=== PATIENT | female | born 1945 | race Caucasian/White ===

== ENCOUNTER → 2016-09-03 | Outpatient (CLI) | payer MEDICARE ==
[2016-09-03 11:29] LABS: EKG EKG PERFORMED
[2016-09-03 11:57] LABS: Basophils # (A) 0.1 k/uL (0-0.2); Basophils % (A) 1 %; CH 32.2; CHCM 33.6; Eosinophils # (A) 0.3 k/uL (0-0.7); Eosinophils % (A) 4 %; HCT 39.5 % (34.0-46.0); HDW 2.43; Luc # (Auto) 0.23; Luc % (Auto) 3; Lymphocytes # (A) 2.1 k/uL (1.0-4.8); Lymphocytes % (A) 30 %; MCH 31.5 pg (25.0-35.0); MCHC 32.8 g/dL (31.0-37.0); MCV 96.1 fL (80.0-100.0); Monocytes # (A) 0.5 k/uL (0-1.0); Monocytes % (A) 7 %; Neutrophils # (A) 3.9 k/uL (1.3-7.7); Neutrophils % (A) 55 %; RBC 4.11 m/uL (3.80-5.40); RDW 13.6 % (11.5-15.5); WBC 7.1 k/uL (3.8-10.6); WBC (Perox) 7.86
[2016-09-03 12:25] LABS: Anion Gap 10 mmol/L; Blood Urea Nitrogen 19 mg/dL (7-17); Calcium 9.4 mg/dL (8.4-10.2); Carbon Dioxide 26 mmol/L (22-30); Chloride 106 mmol/L (98-107); Glucose 93 mg/dL (74-99); Non-African American GFR(MDRD) 49 (>60 ml/min/1.73 sqM); Potassium 4.5 mmol/L (3.5-5.1); Sodium 142 mmol/L (137-145)
== END | disposition home or self-care (01) ==
LOC: LABPAT 11:19
PROVIDERS: ATTEND Physician Assistant
DX: Z01.810 Encounter for preprocedural cardiovascular examination (principal); Z01.812 Encounter for preprocedural laboratory examination; I48.91 Unspecified atrial fibrillation; E03.9 Hypothyroidism, unspecified; N20.1 Calculus of ureter; Z51.81 Encounter for therapeutic drug level monitoring; Z79.01 Long term (current) use of anticoagulants
CPT/HCPCS: 36415; 80048; 85025; 93005

== ENCOUNTER 2016-09-10 14:06 | Day surgery (SDC) | payer MEDICARE ==
[2016-09-06 16:21] VITALS: BMI 34.7
--- NOTE | 2016-09-10 14:04 | XR ---
EXAMINATION TYPE: XR KUB DATE OF EXAM: 09/10/2016 2:00 PM COMPARISON: 09/03/2013 HISTORY: Pain TECHNIQUE: One view abdominal series FINDINGS: The osseous structures are intact. The bowel gas pattern is nonspecific. Lung bases are clear. Calc ifications in the pelvis are likely vascular. Degenerative change lower lumbar spine. Arthropathy of the hips. IMPRESSION: 1. Nonspecific abdomen.
[~2016-09-10 14:06] MED LIST: DEXAMETHASONE SOD PHOSPHATE 10 MG/ML 1 ML VIAL IV ONE; HYDROmorphone 1 MG/ML 1 ML SYRINGE IVP PRN; LACTATED RINGERS 1,000 ML IV SCH; ONDANSETRON 4 MG/2 ML VIAL IVP ONE; Pre Op ABX Message 1 EACH MISC MISCELLANE ONE
[2016-09-10 14:31] VITALS: RESP 16; TEMP 97.9
[2016-09-10] MEDS ORDERED: LIDOCAINE 1% 20 ML VIAL (10MG/ML) FOR IV START INTRADERMA ONE (14:33)
[2016-09-10 15:04] LABS: INR 1.2 (<1.1); Prothrombin Time 11.7 sec (9.0-12.0)
[2016-09-10] MEDS ORDERED: IOHEXOL 300 MG/ML 50 ML BOTTLE INJ ONE (18:20)
[2016-09-10 18:43] VITALS: BP 165/99; PULSE 124
--- NOTE | 2016-09-11 12:44 | OP ---
DATE OF SERVICE: 09/10/2016 SURGEON: MYKE RESENDIZ MD PREOPERATIVE DIAGNOSIS: Right ureteral calculus. POSTOPERATIVE DIAGNOSIS: No definite calculus present. OPERATION: Examination under fluoroscopy with intravenous contrast. ANESTHESIA: None The patient is a 71-year-old female with a history of urolithiasis who had a CT scan of the abdomen and pelvis at [facility] on 08/03 that identified a 6 mm proximal right ureteral calculus. The patient was not symptomatic at that time. Treatment options were reviewed with Dr. Rojas and the patient has elected to undergo ESWL treatment. She has not been straining her urine since that time and has had no pain. The patient was taken to the fluoroscopy suite. The right ureteral calculus was not identifiable on a KUB or with fluoroscopy. The patient is given 100 mL of Omnipaque 300. There appeared to be opacification of the right ureter within 5 or 10 minutes, which confirmed no ureteral obstruction. It was my feeling that the patient most likely passed the calculus sometime in the last 5 weeks. Because of this, ESWL was canceled. [facility]
== END 2016-09-10 18:44 | disposition home or self-care (01) ==
LOC: ORWHC2ENDO 14:06
PROVIDERS: ATTEND Urology
DX: N20.1 Calculus of ureter (principal); R52 Pain, unspecified; Z53.8 Procedure and treatment not carried out for other reasons; I48.91 Unspecified atrial fibrillation; E03.9 Hypothyroidism, unspecified; E55.9 Vitamin D deficiency, unspecified; E78.00 Pure hypercholesterolemia, unspecified; E66.9 Obesity, unspecified; Z68.34 Body mass index [BMI] 34.0-34.9, adult; M19.90 Unspecified osteoarthritis, unspecified site; I12.9 Hypertensive chronic kidney disease with stage 1 through stage 4 chronic kidney disease, or unspecified chronic kidney disease; N18.3 Chronic kidney disease, stage 3 (moderate); F41.9 Anxiety disorder, unspecified; J44.9 Chronic obstructive pulmonary disease, unspecified; G47.33 Obstructive sleep apnea (adult) (pediatric); K21.9 Gastro-esophageal reflux disease without esophagitis; Z79.01 Long term (current) use of anticoagulants; Z79.82 Long term (current) use of aspirin; Z79.899 Other long term (current) drug therapy; Z88.4 Allergy status to anesthetic agent; Z88.8 Allergy status to other drugs, medicaments and biological substances; Z91.048 Other nonmedicinal substance allergy status; Z87.891 Personal history of nicotine dependence
CPT/HCPCS: 85610; 74000; 50590; Q9967

== ENCOUNTER → 2016-11-13 | Outpatient (CLI) | payer MEDICARE ==
--- NOTE | 2016-11-13 13:39 | XR ---
EXAMINATION TYPE: XR KUB , 2 VIEWS DATE OF EXAM ORDERED: 11/13/2016 HISTORY: N20.0 Stone. COMPARISON: Previous study dated 09/10/2016. FINDINGS: There has been a previous cholecystectomy. There are stable phleboliths within the pelvis. Definite renal calculus is not identified. The abdomi nal gas pattern is normal. There are degenerative changes in the hips and lower spine. IMPRESSION: NO ACUTE INTRA-ABDOMINAL ABNORMALITY.
== END | disposition home or self-care (01) ==
LOC: RADXRMAIN 13:20
PROVIDERS: ATTEND Urology
DX: N20.0 Calculus of kidney (principal)
CPT/HCPCS: 74000

== ENCOUNTER → 2016-12-06 | Outpatient (CLI) | payer MEDICARE ==
[2016-12-06 08:59] LABS: Basophils % (A) 1 %; CH 31.5; CHCM 33.3; Eosinophils # (A) 0.3 k/uL (0-0.7); Eosinophils % (A) 5 %; HCT 39.5 % (34.0-46.0); HDW 2.49; HGB 13.3 gm/dL (11.4-16.0); Luc # (Auto) 0.21; Luc % (Auto) 3; Lymphocytes # (A) 2.1 k/uL (1.0-4.8); Lymphocytes % (A) 29 %; MCHC 33.7 g/dL (31.0-37.0); MCV 95.1 fL (80.0-100.0); Mean Platelet Volume 6.8; Monocytes # (A) 0.5 k/uL (0-1.0); Monocytes % (A) 6 %; Neutrophils # (A) 4.1 k/uL (1.3-7.7); Neutrophils % (A) 57 %; RBC 4.15 m/uL (3.80-5.40); RDW 13.4 % (11.5-15.5); WBC 7.2 k/uL (3.8-10.6)
[2016-12-06 09:08] LABS: Calcium 9.2 mg/dL (8.4-10.2)
== END | disposition home or self-care (01) ==
LOC: LABPAT 08:37
PROVIDERS: ATTEND Physician Assistant
DX: Z01.812 Encounter for preprocedural laboratory examination (principal); N20.0 Calculus of kidney; N13.30 Unspecified hydronephrosis; E03.9 Hypothyroidism, unspecified; R35.0 Frequency of micturition
CPT/HCPCS: 80048; 85025; 87086

== ENCOUNTER 2016-12-13 06:05 | Day surgery (SDC) | payer MEDICARE ==
[2016-12-06 15:27] VITALS: BMI 35.6
[~2016-12-13 06:05] MED LIST changes: -Pre Op ABX Message 1 EACH MISC MISCELLANE ONE; +ceFAZolin 1,000 MG in DEXTROSE/WATER 1 50ML.BAG IV ONE
[2016-12-13 06:36] VITALS: RESP 16
[2016-12-13] MEDS ORDERED: LIDOCAINE 1% 20 ML VIAL (10MG/ML) FOR IV START INTRADERMA ONE (07:12)
[2016-12-13 07:28] LABS: INR 1.2 (<1.2); Prothrombin Time 12.2 sec (9.0-12.0)
[2016-12-13] MEDS ORDERED: SUCCINYLCHOLINE CHLORIDE 100 MG/5 ML SYR IV ONE (07:38)
[2016-12-13] MEDS ORDERED: fentaNYL (PF) 50 MCG/ML 2 ML AMP ONE (07:38)
[2016-12-13] MEDS ORDERED: ePHEDrine SULFATE/0.9% NACL/PF 50 MG/5 ML SYRINGE IV ONE (07:38)
[2016-12-13] MEDS ORDERED: GLYCOPYRROLATE 0.2 MG/ML 2 ML VIAL ONE (07:38)
[2016-12-13] MEDS ORDERED: MIDAZOLAM 2 MG/2 ML VIAL ONE (07:38)
[2016-12-13] MEDS ORDERED: PROPOFOL 10 MG/ML 20 ML VIAL IV ONE (07:38)
--- NOTE | 2016-12-13 07:49 | XR ---
Abdomen HISTORY: Right renal calculus, kidney stones Frontal view of the abdomen correlated to prior of 11/13/2016 Overlying bowel gas may obscure detail. Surgical clips present in the right upper quadrant. No eviden t pneumoperitoneum or bowel obstruction. Multiple calcifications within the pelvis are indeterminate and may represent phleboliths. Bone mineralization is stable. Degenerative disc changes, facet arthro merle and the visualized spine. Lung bases are not included on the exam. IMPRESSION: Bowel gas may obscure detail of kidney stones. Additional findings above.
[2016-12-13] MEDS ORDERED: IOHEXOL 300 MG/ML 50 ML BOTTLE INJ ONE (07:54)
[2016-12-13] MEDS ORDERED: LACTATED RINGERS 1,000 ML IV ONE (08:46)
--- NOTE | 2016-12-13 09:06 | P.OP ---
Date of Procedure: 12/13/16 Preoperative Diagnosis: Right Ureteral Calculus Postoperative Diagnosis: Same Procedure(s) Performed: Cystoscopy, right retrograde pyelogram, right ureteroscopy with Holmium laser lithotripsy and stone basketing, right ureteral stent insertion Implants: Anesthesia: FANNY Surgeon: Dmitry Rojas Estimated Blood Loss (ml): 0 IV fluids (ml): 1,000 Pathology: none sent Condition: stable Disposition: PACU Indications for Procedure: She is a 71 year old female with a history of one stone in 2013. She had ESWL twice for a large, 11 mm calculus. She had a recent CT done to evaluate an umbilical hernia, and it showed a 6 mm right proximal ureteral calculus, with mild rotation of the right kidney, and mild hydronephrosis. She has not had any pain, and was unaware that she had another stone. A 24 hour urine study in 2013 showed diminished urine output, as well as borderline hydroxyurea. She has been drinking more water since then. She was set up for ESWL, but the stone could not be seen. A repeat CT showed an 8 mm right proximal ureteral calculus causing hydronephrosis, and she now comes for ureteroscopic removal (cystoscopy , right ureteroscopy, laser lithotripsy and stone basketing, with a right stent placement). Operative Findings: Right UPJ calculus, fragmented and removed in its entirety. Description of Procedure: The patient was taken to the operating room and placed in the dorsolithotomy position, with legs supported in Jose F stirrups. The external genitalia was prepped and draped sterilely. The 30 lens was used to introduce the 19-Yemeni Stortz cystoscopic sheath through the urethra and into the bladder under direct vision. The bladder was examined in its entirety. Both ureteral orifices were normal anatomic location and configuration, and clear urine effluxed from both. No tumors or foreign bodies were seen. Using a 12-Yemeni cone-tip catheter, a right retrograde pyelogram was performed in the standard fashion. The ureter appeared normal. The right renal pelvis was noted to be dilated. A calculus at the UPJ is suspected. The ACMI semirigid ureteroscope was advanced into the bladder, and the right ureteral orifice was cannulated. However, the ureteroscope could be advanced only 1 cm, at which point ureteral narrowing was noted. A 0.038 inch Glidewire was passed through the ureteroscope. Resistance was met at the UPJ, and the Glidewire was then advanced into the renal pelvis. The ureteroscope was removed, and an 11/13-Yemeni ureteral access catheter was passed over the wire, up to the proximal ureter. The Olympus flexible ureteroscope was passed through the ureteral access catheter sheath and advanced under direct vision. A calculus was identified within the right renal pelvis. The 200 micron Holmium laser probe was passed through the ureteroscope , and lithotripsy was performed. After fragmenting the calculus, a 1.9-Yemeni nitinol basket was used to remove each of the calculus fragments. There was no evidence of ureteral or renal pelvic trauma. The ureteroscope was removed, and the Glidewire was passed through the ureteral access catheter sheath, which was removed. The Glidewire was backloaded into the cystoscope, which was passed into the bladder. A 24 cm, 4.8-Yemeni double-J ureteral stent was placed over the wire. Proper stent positioning was verified fluoroscopically and endoscopically. The bladder was emptied and the cystoscope removed. The patient tolerated the procedure well and was taken to the recovery room in stable condition.
[2016-12-13 09:13] VITALS: TEMP 97.8
--- NOTE | 2016-12-13 09:52 | FL ---
Fluoroscopy HISTORY: Kidney stones 17 seconds fluoroscopy time supplied to the referring clinician. 2 intraoperative C-arm images docum ent the procedure. See dictated report from urology.
[2016-12-13 10:37] VITALS: BP 148/74; PULSE 58
== END 2016-12-13 11:25 | disposition home or self-care (01) ==
LOC: OR 06:05
PROVIDERS: ATTEND Urology
DX: N13.2 Hydronephrosis with renal and ureteral calculous obstruction (principal); E78.5 Hyperlipidemia, unspecified; J45.909 Unspecified asthma, uncomplicated; I48.91 Unspecified atrial fibrillation; N18.3 Chronic kidney disease, stage 3 (moderate); F41.9 Anxiety disorder, unspecified; E03.9 Hypothyroidism, unspecified; E78.00 Pure hypercholesterolemia, unspecified; G47.30 Sleep apnea, unspecified; E66.9 Obesity, unspecified; I12.9 Hypertensive chronic kidney disease with stage 1 through stage 4 chronic kidney disease, or unspecified chronic kidney disease; Q63.2 Ectopic kidney; M19.90 Unspecified osteoarthritis, unspecified site; K21.9 Gastro-esophageal reflux disease without esophagitis; Z79.01 Long term (current) use of anticoagulants; Z79.1 Long term (current) use of non-steroidal anti-inflammatories (NSAID); Z79.51 Long term (current) use of inhaled steroids; Z79.899 Other long term (current) drug therapy; Z88.4 Allergy status to anesthetic agent; Z87.442 Personal history of urinary calculi; Z99.89 Dependence on other enabling machines and devices; Z82.49 Family history of ischemic heart disease and other diseases of the circulatory system; Z87.891 Personal history of nicotine dependence; Z84.1 Family history of disorders of kidney and ureter; Z68.35 Body mass index [BMI] 35.0-35.9, adult
CPT/HCPCS: 50590; 52332; 85610; 74000; 74420; C2625; C1758 ×3; C1769; C1894; J2250; J1100; J2405; J3010; J0690; J0330; J2704; Q9967

== ENCOUNTER → 2017-01-28 | Outpatient (CLI) | payer MEDICARE ==
--- NOTE | 2017-01-28 11:38 | US ---
EXAMINATION TYPE: US kidneys/renal and bladder DATE OF EXAM: 01/28/2017 COMPARISON: Abdominal x-ray December 13, 2016 CLINICAL HISTORY: R93.4 HX OF HYDRONEPHROSIS. Stent 2 months ago then stent removed for rt stones EXAM MEASUREMENTS: Right Kidney: 10.3 x 4.7 x 4.6 cm Left Kidney: 10.2 x 4.6 x 5.5 cm Post Void Residual Volume: 3.3 mL Right Kidney: No hydronephrosis or masses seen small specular reflector lower, mid 0.5 x 0.4 x 0.3 cm, Left Kidney: No hydronephrosis or masses seen lower pole small specular reflector 0.4 x 0.3 x 0.3 cm Bladder: wnl Bilateral Jets seen: Yes Normal Post Void Residual: Yes There is no evidence for hydronephrosis at this point in time. No nephrolithiasis is seen. No rex s are identified. The urinary bladder is anechoic. Bilateral ureteral jets are seen. After voiding trace residual urinary bladder is present. IMPRESSION: No hydronephrosis is evident bilaterally on current study. Small nonshadowing hyperechoic foci could reflect tiny nonobstructing calculi though no calculi are clearly seen on recent KUB x-ray.
== END | disposition home or self-care (01) ==
LOC: RADUSWWP 09:44
PROVIDERS: ATTEND Urology
DX: Z09 Encounter for follow-up examination after completed treatment for conditions other than malignant neoplasm (principal); Z87.42 Personal history of other diseases of the female genital tract
CPT/HCPCS: 76770

== ENCOUNTER 2023-10-08 16:17 | Inpatient (IN) | payer MEDICARE ==
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
[2023-10-08 17:43] LABS: MCH 30.6 pg (25.0-35.0); MCHC 33.1 g/dL (31.0-37.0); MCV 92.6 fL (80.0-100.0); Platelet Count 249 k/uL (150-450); RBC 1.85 m/uL (3.80-5.40); RDW 15.6 % (11.5-15.5)
[2023-10-08 17:46] LABS: HCT 17.1 % (34.0-46.0)
[2023-10-08 17:47] LABS: HGB 5.7 gm/dL (11.4-16.0)
[2023-10-08 17:53] LABS: Partial Thromboplastin Time 52.4 sec (22.0-30.0); Prothrombin Time 97.8 sec (10.0-12.5)
[2023-10-08 17:59] LABS: INR 9.8 (<1.2)
[2023-10-08 18:00] LABS: ALT 21 U/L (4-34); AST 27 U/L (14-36); African American GFR (CKD) 57 (>60 ml/min/1.73 sqM); Albumin 3.3 g/dL (3.5-5.0); Alkaline Phosphatase 51 U/L (38-126); Anion Gap 8 mmol/L; Blood Urea Nitrogen 50 mg/dL (7-17); Calcium 8.8 mg/dL (8.4-10.2); Carbon Dioxide 19 mmol/L (22-30); Chloride 107 mmol/L (98-107); Glucose 121 mg/dL (74-99); Magnesium 1.9 mg/dL (1.6-2.3); Non-African American GFR(CKD) 50 (>60 ml/min/1.73 sqM); Potassium 4.7 mmol/L (3.5-5.1); Sodium 134 mmol/L (137-145); Total Bilirubin 0.3 mg/dL (0.2-1.3); Total Protein 5.1 g/dL (6.3-8.2)
[2023-10-08 18:09] LABS: Band Neutrophils % 2 %; Lymphocytes # (M) 1.73 k/uL (1.0-4.8); Metamyelocytes # (M) 0.17 k/uL (0); Metamyelocytes % 1 %; Monocytes # (M) 0.52 k/uL (0-1.0); Myelocytes # (M) 0.17 k/uL (0); Myelocytes % 1 %; Neutrophils % (M) 85 %; Nucleated Red Blood Cells 2 /100 WBC (0-0); Polychromasia Present; Total Cells Counted 200; WBC 17.3 k/uL (3.8-10.6)
--- NOTE | 2023-10-08 18:23 | XR ---
EXAMINATION TYPE: XR chest 2V DATE OF EXAM: 10/08/2023 COMPARISON: Chest x-ray February 16, 2015 HISTORY: Weakness. TECHNIQUE: Frontal and lateral views of the chest are obtained. FINDINGS: Suspect background chronic emphysematous change. There is no focal air space opacity, pleu ral effusion, or pneumothorax seen. The cardiac silhouette size is within normal limits. Dual-lead pacemaker is now present. The osseous structures are demineralized. IMPRESSION: Chronic changes without acute pulmonary process.
[2023-10-08] MEDS: PHYTONADIONE 10 MG in SODIUM CHLORIDE 0.9% 50 ML IVPB STA (18:48)
[2023-10-08] MEDS: SODIUM CHLORIDE 0.9% 1,000 ML IV ONE (19:50)
[2023-10-08 19:54] LABS: MCH 30.2 pg (25.0-35.0); MCHC 32.1 g/dL (31.0-37.0); Mean Platelet Volume 7.9; Platelet Count 278 k/uL (150-450); RBC 1.83 m/uL (3.80-5.40); RDW 15.8 % (11.5-15.5)
[2023-10-08 20:11] LABS: HCT 17.2 % (34.0-46.0); HGB 5.5 gm/dL (11.4-16.0)
[2023-10-08 21:01] LABS: Band Neutrophils % 2 %; Basophils # (M) 0.19 k/uL (0-0.2); Eosinophils # (M) 0.38 k/uL (0-0.7); Lymphocytes # (M) 3.02 k/uL (1.0-4.8); Metamyelocytes # (M) 0.19 k/uL (0); Metamyelocytes % 1 %; Monocytes # (M) 0.57 k/uL (0-1.0); Myelocytes # (M) 0.19 k/uL (0); Myelocytes % 1 %; Neutrophils % (M) 77 %; Nucleated Red Blood Cells 1 /100 WBC (0-0); Total Cells Counted 200; WBC 18.9 k/uL (3.8-10.6)
[2023-10-08 21:02] LABS: Large Platelets Present; Polychromasia Present
[2023-10-08] MEDS ORDERED: LORATADINE 10 MG TAB PO PRN (23:25)
[2023-10-08] MEDS ORDERED: ARTIFICIAL TEARS-HYPROMELLOSE DROPS 15 ML BTL BOTH EYES PRN (23:25)
[2023-10-08] MEDS ORDERED: MONTELUKAST 10 MG TAB PO PRN (23:25)
[2023-10-08] MEDS ORDERED: SYMBICORT 160-4.5 MCG INHALER INHALATION PRN (23:25)
[2023-10-08] MEDS ORDERED: IPRATROPIUM 0.5 MG/2.5 ML NEBU INHALATION PRN (23:47)
--- NOTE | 2023-10-09 00:23 | P.HPIM ---
History of Present Illness H&P Date: 10/08/23 HISTORY OF PRESENT ILLNESS: 78-year-old with active medical history of atrial fibrillation, obstructive sleep apnea, chronic history of lower back pain, hypertension, hyperlipidemia, history of iron deficiency anemia, chronic edema, and chronic depression who has multi surgery in the past patient apparently take warfarin for A-fib as an anticoagulation she has not been on any of the novel agent. Her PT/INR noticed in the office to be above 8 was instructed to watch it carefully and repeat quickly and if she is having any complaint to come to the emergency department. Apparently patient came to the emergency department in the afternoon today for her abnormal lab with significant shortness of breath and sever weakness of the lower extremity not been well explained. She was seen and evaluated surprisingly found to have INR of 9.8, hemoglobin of 5.5 hematocrit of 17.2 with white blood cell 18.9 normal platelet count. Electrolyte balance shows creatinine of 1.09 with bun of 50 Hemoccult was positive lactic acid was 1.2 blood sugar was 121 troponin was less than 0.012. Chest x-ray showed chronic changes without acute pulmonary process no pneumothorax or pleural effusion. EKG showed electronic atrial pacemaker with pulse rate running around 81 beats per minutes. With above complaint patient had severe acute anemia most likely from GI bleed with severe coagulopathy mostly iatrogenic as an interaction with the warfarin with diet and medication causing her INR to be that high. Patient will be watched carefully and blood transfusion be done will consult general surgery since there is no GI on-call for backup in case need to do endoscopy. In the meanwhile hopefully correcting her blood loss might help significantly and clear some of her symptoms. REVIEW OF SYSTEMS: CONSTITUTIONAL: Well-developed very pale no acute respiratory distress. EYES: No icterus sclerae, no conjunctivitis. EARS, NOSE, MOUTH, THROAT, and FACE: No sore throat, lymphadenopathy, carotid bruits or deformity. RESPIRATORY: No SOB cough or wheezes. CARDIOVASCULAR: No CP, Palpitation, PND, Orthopnea, or angina. GASTROINTESTINAL: No Abd pain, Nausea or vomiting, no Diarrhea or constipation, No GI Bleed, no distention or masses. GENITOURINARY: Negative for Hematuria or UTI, no kidney stones. INTEGUMENT/BREAST: Negative for any muscular injury with mild osteoarthritis.. HEMATOLOGIC/LYMPHATIC: Negative for bleed or purpura. MUSCULOSKELTAL: Negative for Myalgia or arthralgia. NEURLOGICAL: No LOC, Sz or syncope, blurred vision dizziness or abnormality.. BEHAVIORAL/PSYCH: Negative. ENDOCRINE: Negative. PHYSICAL EXAMINATION: General Appearance: Alert, cooperative, no distress, appears stated age. Neck HEENT: Supple, no lymphadenopathy, no thyroid enlargement, no carotid bruits. Lungs: Clear to auscultation without crackles or wheezes no rhonchi, no deformity. Chest Wall: Chest wall normal expansion with deep inspiration no tenderness and no deformity was found on exam, no costochondral pain or discomfort. Heart: Regular rate and rhythm, S1, S2 normal, no murmur, rub or gallop. Back: Symmetric, no curvature, ROM normal, no CVA tenderness. Abdomen: Soft, non-tender, bowel sounds active all four quadrants, no masses, no organomegaly. Extremities: Extremities normal, atraumatic, no cyanosis or edema. Pulses: 2+ and symmetric. Skin: Skin color, texture, tugor normal, no rashes or lesions. Neurologic: Alert oriented x3 cranial nerves II through XII intact, no motor deficit, no abnormal balance or gait. ASSESSMENT AND PLAN: _Acute blood loss anemia: Not clear etiology could be consistent with a c oagulopathy but this is most likely source is gastrointestinal specially with elevated BUN along with positive Hemoccult, will correct coagulopathy, correct hemoglobin watch for any further bleed. _Severe coagulopathy: With INR of 9.8 not clear etiology this is probably interaction with medication or diet, vitamin K was giving no need for fresh frozen plasma unless patient is an active bleed in the meanwhile continue to watch PT/INR daily in the next 2 days and hopefully will settle down and improve not quite sure why patient is not on one of the novel agent which will be more helpful. _Leukocytosis: Not a clear etiology this is again could be reactive there is no sign of active infection currently. _Acute kidney injury with BUN of 50 creatinine 1.09 with GFR 50 this is most likely from the severity of the anemia and volume loss correct anemia and volume loss hopefully the kidney function will improve. _Positive Hemoccult: Again not a clear patient is having any active bleed at thi s time or is just the effect of the coagulopathy. _Type 2 diabetes: Has been on metformin only continue Accu-Chek with sliding scales coverage. _A-fib: Pulse rates under control continue metoprolol succinate 25 mg a day, still on diltiazem CD1 20 mg daily will hold off on anticoagulation for now. _Post pacemaker: Apparently has been doing well with no complication. _Hyperlipidemia: On pravastatin 20 mg a day. _Hypertension: Remain on irbesartan 300 mg a day along with metoprolol succinate 25 mg a day, diltiazem CD. _Hypothyroidism: Continue levothyroxine 137 mcg daily. _Mild COPD: Continue albuterol/ipratropium along with montelukast and breztri inhaler. _Chronic edema and diastolic heart failure: Has been on furosemide 40 mg daily will hold medication for now. _GI prophylaxis: Continue patient on pantoprazole. _DVT prophylaxis: Early mobilization and knee-high SONU hose. CODE STATUS: Full code. Admit patient to the inpatient service for more than 2 night stay. Past Medical History Past Medical History: Atrial Fibrillation Additional Past Medical History / Comment(s): 02/22/15 Pt admitted to floor s/p R shoulder sx. Other HX: SLEEP APNEA-USES C-PAP, BACK AND NECK PAIN, FELL AND INJURED R SHOULDER NOVEMBER 2014. Cryoablation, cardioversion History of Any Multi-Drug Resistant Organisms: None Reported Past Surgical History: Cholecystectomy, Hysterectomy, Orthopedic Surgery, Tonsillectomy Additional Past Surgical History / Comment(s): 02/22/15 Acromioplasty excision distal clavicle rotator cuff repair R shoulder. Other SX HX: TONSILLS(5), RT HAND CELL TUMOR(1972), LT FOOT GANGLION CYST (1986), (1 988),HYST(1987),TAMAR(1988),RT KNEE ARTHROSCOPY(2000), TOTAL RT KNEE (2001),LT Carpal tunnel release (2003), LEFT HAND VEIN RELEASE(2008). Past Anesthesia/Blood Transfusion Reactions: No Reported Reaction Past Psychological History: Unable to Obtain, Anxiety Additional Psychological History / Comment(s): She is independent. She drives. She uses no assistive device. She has a CPAP. Smoking Status: Never smoker Past Alcohol Use History: Rare Past Drug Use History: None Reported - Past Family History Mother Family Medical History: Cancer Additional Family Medical History / Comment(s): LUNG CA Brother(s) Family Medical History: Cancer Additional Family Medical History / Comment(s): LUNG & BRAIN CA Father Family Medical History: CVA/TIA Son(s) Family Medical History: No Reported History Medications and Allergies Home Medications Medication Instructions Recorded Confirmed Type Aspirin EC [Ecotrin] 81 mg PO DAILY 02/17/15 10/08/23 History Levothyroxine Sodium [Synthroid] 137 mcg PO DAILY 02/17/15 10/08/23 History Multivit with Calcium,Iron,Min 1 tab PO DAILY 02/17/15 10/08/23 History [Women's Daily Multivitamin] [place]-3 Fatty Acids/Fish Oil [Fish 1 cap PO BID 02/17/15 10/08/23 History Oil 1,000 mg Softgel] Warfarin [Coumadin] 5 mg PO DIRECTED 02/17/15 10/08/23 History Ferrous Sulfate [Feosol] 325 mg PO DAILY 09/06/16 10/08/23 History Furosemide [Lasix] 40 mg PO DAILY 09/06/16 10/08/23 History Loratadine [Claritin] 10 mg PO DAILY PRN 09/06/16 10/08/23 History Montelukast Sodium [Singulair] 10 mg PO DIRECTED PRN 09/06/16 10/08/23 History Potassium Chloride [Klor-Con 20] 20 meq PO DAILY 09/06/16 10/08/23 History Vitamin C/Biotin [Hair, Skin and 1 tab PO DAILY 09/06/16 10/08/23 History Nails] busPIRone HCL 5 mg PO BID 09/06/16 10/08/23 History Amoxicillin 2,000 mg PO ONETIME PRN 10/08/23 10/08/23 History Budesonide/Glycopyr/Formoterol 2 puff INHALATION DIRECTED PRN 10/08/23 10/08/23 History [Breztri Aerosphere Inhaler] Carboxymethylcellulose Sodium 1 drop BOTH EYES QID PRN 10/08/23 10/08/23 History [Refresh Tears] Cholecalciferol [Vitamin D3 (125 125 mcg PO DAILY 10/08/23 10/08/23 History Mcg = 5000 Iu)] Cyanocobalamin [Vitamin B-12] 500 mcg PO MOWEFR 10/08/23 10/08/23 History Diltiazem Cd [Cardizem CD] 120 mg PO DIRECTED@2100 10/07/24 06/11/24 History Fluticasone Nasal [place] [Flonase 1 spr EA NOSTRIL BID 10/08/23 10/08/23 History Nasal [place]] Irbesartan 150 mg PO DIRECTED@209910/08/23 10/08/23 History Magnesium Oxide [Magnesium] 500 mg PO DAILY 10/08/23 10/08/23 History Metoprolol Succinate (ER) [Toprol 25 mg PO HS 10/08/23 10/08/23 History Xl] Pantoprazole [Protonix] 40 mg PO DAILY 10/08/23 10/08/23 History Pravastatin(Unknown Dose) 1 tab PO DAILY 10/08/23 10/08/23 History metFORMIN HCL ER [Glucophage XR] 500 mg PO HS 10/08/23 10/08/23 History Allergies Allergy/AdvReac Type Severity Reaction Status Date / Time procaine HCl [From Novocain] AdvReac Unknown Rapid Verified 10/08/23 20:38 Heart Rate Physical Exam Vitals: Vital Signs Temp Pulse Pulse Resp BP BP Pulse Ox 10/08/23 21:22 98 F 70 14 132/54 100 10/08/23 21:04 97.7 F 70 17 126/54 100 10/08/23 20:44 98.6 F 65 17 112/60 100 10/08/23 20:34 98.7 F 69 18 93/81 100 10/08/23 20:00 67 20 119/47 100 10/08/23 18:37 92 18 120/44 95 10/08/23 16:24 98.4 F 83 18 116/50 100 Intake and Output 10/08/23 10/08/23 10/09/23 14:59 22:59 06:59 Intake Total 0 Balance 0 Intake: Blood Product 0 Unit 0 Other: Voiding Method Toilet Weight 85.275 kg Results CBC & Chem 7: 10/08/23 19:44 10/08/23 17:10 Labs: Abnormal Lab Results - Last 24 Hours (Table) 10/08/23 10/08/23 10/08/23 Range/Units 17:10 17:10 17:10 WBC 17.3 H (3.8-10.6) k/uL RBC 1.85 L (3.80-5.40) m/uL Hgb 5.7 L* (11.4-16.0) gm/dL Hct 17.1 L* (34.0-46.0) % RDW 15.6 H (11.5-15.5) % Neutrophils # (Manual) 15.00 H (1.3-7.7) k/uL Metamyelocytes # (Man) 0.17 H (0) k/uL Myelocytes # (Manual) 0.17 H (0) k/uL Nucleated RBCs 2 H (0-0) /100 WBC PT 97.8 H (10.0-12.5) sec INR 9.8 H* (<1.2) APTT 52.4 H (22.0-30.0) sec Sodium 134 L (137-145) mmol/L Carbon Dioxide 19 L (22-30) mmol/L BUN 50 H (7-17) mg/dL Creatinine 1.09 H (0.52-1.04) mg/dL Glucose 121 H (74-99) mg/dL Plasma Lactic Acid Jossue (0.7-2.0) mmol/L Total Protein 5.1 L (6.3-8.2) g/dL Albumin 3.3 L (3.5-5.0) g/dL Stool Occult Blood (Negative) Crossmatch 10/08/23 10/08/23 10/08/23 Range/Units 17:10 18:40 18:40 WBC (3.8-10.6) k/uL RBC (3.80-5.40) m/uL Hgb (11.4-16.0) gm/dL Hct (34.0-46.0) % RDW (11.5-15.5) % Neutrophils # (Manual) (1.3-7.7) k/uL Metamyelocytes # (Man) (0) k/uL Myelocytes # (Manual) (0) k/uL Nucleated RBCs (0-0) /100 WBC PT (10.0-12.5) sec INR (<1.2) APTT (22.0-30.0) sec Sodium (137-145) mmol/L Carbon Dioxide (22-30) mmol/L BUN (7-17) mg/dL Creatinine (0.52-1.04) mg/dL Glucose (74-99) mg/dL Plasma Lactic Acid Jossue 2.7 H* (0.7-2.0) mmol/L Total Protein (6.3-8.2) g/dL Albumin (3.5-5.0) g/dL Stool Occult Blood Positive H (Negative) Crossmatch See Detail 10/08/23 10/08/23 Range/Units 19:44 20:31 WBC 18.9 H (3.8-10.6) k/uL RBC 1.83 L (3.80-5.40) m/uL Hgb 5.5 L* (11.4-16.0) gm/dL Hct 17.2 L* (34.0-46.0) % RDW 15.8 H (11.5-15.5) % Neutrophils # (Manual) 14.90 H (1.3-7.7) k/uL Metamyelocytes # (Man) 0.19 H (0) k/uL Myelocytes # (Manual) 0.19 H (0) k/uL Nucleated RBCs 1 H (0-0) /100 WBC PT (10.0-12.5) sec INR (<1.2) APTT (22.0-30.0) sec Sodium (137-145) mmol/L Carbon Dioxide (22-30) mmol/L BUN (7-17) mg/dL Creatinine (0.52-1.04) mg/dL Glucose (74-99) mg/dL Plasma Lactic Acid Jossue 2.6 H* (0.7-2.0) mmol/L Total Protein (6.3-8.2) g/dL Albumin (3.5-5.0) g/dL Stool Occult Blood (Negative) Crossmatch Thrombosis Risk Factor Assmnt - Choose All That Apply Any of the Below Risk Factors Present?: Yes Each Factor Represents 1 point: Obesity (BMI >25) Other Risk Factors: Yes Each Risk Factor Represents 3 Points: Age 75 years or older Other congenital or acquired thrombophilia - If yes, enter type in comment: No Thrombosis Risk Factor Assessment Total Risk Factor Score: 4 Thrombosis Risk Factor Assessment Level: Moderate Risk
[2023-10-09 02:08] LABS: Basophils # (A) 0.1 k/uL (0-0.2); Basophils % (A) 1 %; Eosinophils # (A) 0.1 k/uL (0-0.7); Eosinophils % (A) 1 %; HCT 21.4 % (34.0-46.0); Lymphocytes # (A) 2.5 k/uL (1.0-4.8); Lymphocytes % (A) 15 %; MCH 30.4 pg (25.0-35.0); MCHC 32.8 g/dL (31.0-37.0); MCV 92.6 fL (80.0-100.0); Mean Platelet Volume 7.8; Monocytes % (A) 6 %; Neutrophils # (A) 12.8 k/uL (1.3-7.7); Neutrophils % (A) 77 %; Platelet Count 217 k/uL (150-450); RBC 2.31 m/uL (3.80-5.40); RDW 15.1 % (11.5-15.5); WBC 16.7 k/uL (3.8-10.6)
[2023-10-09] MEDS: LEVOTHYROXINE 137 MCG TAB PO SCH (06:09)
[2023-10-09 06:25] LABS: Glucose,Whole Blood 134 mg/dL (70-110)
[2023-10-09 06:47] LABS: Appearance,Urine Cloudy (Clear); Bacteria,Urine Moderate /hpf; Bilirubin,Urine Negative (Negative); Blood,Urine Negative (Negative); Color,Urine Colorless; Glucose,Urine (UA) Negative (Negative); Ketones,Urine Negative (Negative); Leukocyte Esterase,Urine Large (Negative); Mucus,Urine Rare /hpf; Nitrite,Urine Negative (Negative); Protein,Urine Negative (Negative); RBC,Urine 6 /hpf (0-5); Specific Gravity,Urine 1.023 (1.001-1.035); Squamous Epithelial Cell,Urine 3 /hpf (0-4); Urobilinogen,Urine <2.0 mg/dL (<2.0); WBC,Urine 182 /hpf (0-5)
--- NOTE | 2023-10-09 08:02 | P.PN ---
Subjective Progress Note Date: 10/09/23 HISTORY OF PRESENT ILLNESS: 78-year-old with active medical history of atrial fibrillation, obstructive sleep apnea, chronic history of lower back pain, hypertension, hyperlipidemia, h istory of iron deficiency anemia, chronic edema, and chronic depression who has multi surgery in the past patient apparently take warfarin for A-fib as an anticoagulation she has not been on any of the novel agent. Her PT/INR noticed in the office to be above 8 was instructed to watch it carefully and repeat quickly and if she is having any complaint to come to the emergency department. Apparently patient came to the emergency department in the afternoon today for her abnormal lab with significant shortness of breath and sever weakness of the lower extremity not been well explained. She was seen and evaluated surprisingly found to have INR of 9.8, hemoglobin of 5.5 hematocrit of 17.2 with white blood cell 18.9 normal platelet count. Electrolyte balance shows creatinine of 1.09 with bun of 50 Hemoccult was positive lactic acid was 1.2 blood sugar was 121 troponin was less than 0.012. Chest x-ray showed chronic changes without acute pulmonary process no pneumothorax or pleural effusion. EKG showed electronic atrial pacemaker with pulse rate running around 81 beats per minutes. With above complaint patient had severe acute anemia most likely from GI bleed with severe coagulopathy mostly iatrogenic as an interaction with the warfarin with diet and medication causing her INR to be that high. Patient will be watched carefully and blood transfusion be done will consult general surgery since there is no GI on-call for backup in case need to do endoscopy. In the meanwhile hopefully correcting her blood loss might help significantly and clear some of her symptoms. 10/09/2023: Patient is feeling much better, after her transfusion her hemoglobin is up to 7.0, no sign of active GI bleed at this point. Will start iron infusion still on GI prophylaxis at this point. Patient is scheduled to have GI endoscopy with Dr. Dustin allan in November from previous testing done over 2 years ago. She does not have any history of recurrent GI bleed or peptic ulcer disease. With her coagulopathy this probably the biggest factor be a problem. Long talk with patient today about if remain on warfarin we will try to do INR home monitor to tested weekly from now and otherwise we will see if we are able to approve patient for the [facility] agent to switch her to either Eliquis or Xarelto. Patient will remain in the hospital for 24 more hours and will try to send her home tomorrow but she will have iron infusion today and tomorrow. REVIEW OF SYSTEMS: CONSTITUTIONAL: Well-developed very pale no acute respiratory distress. EYES: No icterus sclerae, no conjunctivitis. EARS, NOSE, MOUTH, THROAT, and FACE: No sore throat, lymphadenopathy, carotid bruits or deformity. RESPIRATORY: No SOB cough or wheezes. CARDIOVASCULAR: No CP, Palpitation, PND, Orthopnea, or angina. GASTROINTESTINAL: No Abd pain, Nausea or vomiting, no Diarrhea or constipation, No GI Bleed, no distention or masses. GENITOURINARY: Negative for Hematuria or UTI, no kidney stones. INTEGUMENT/BREAST: Negative for any muscular injury with mild osteoarthritis.. HEMATOLOGIC/LYMPHATIC: Negative for bleed or purpura. MUSCULOSKELTAL: Negative for Myalgia or arthralgia. NEURLOGICAL: No LOC, Sz or syncope, blurred vision dizziness or abnormality.. BEHAVIORAL/PSYCH: Negative. ENDOCRINE: Negative. PHYSICAL EXAMINATION: General Appearance: Alert, cooperative, no distress, appears stated age. Neck HEENT: Supple, no lymphadenopathy, no thyroid enlargement, no carotid bruits. Lungs: Clear to auscultation without crackles or wheezes no rhonchi, no deformity. Chest Wall: Chest wall normal expansion with deep inspiration no tenderness and no deformity was found on exam, no costochondral pain or discomfort. Heart: Regular rate and rhythm, S1, S2 normal, no murmur, rub or gallop. Back: Symmetric, no curvature, ROM normal, no CVA tenderness. Abdomen: Soft, non-tender, bowel sounds active all four quadrants, no masses, no organomegaly. Extremities: Extremities normal, atraumatic, no cyanosis or edema. Pulses: 2+ and symmetric. Skin: Skin color, texture, tugor normal, no rashes or lesions. Neurologic: Alert oriented x3 cranial nerves II through XII intact, no motor deficit, no abnormal balance or gait. ASSESSMENT AND PLAN: _Acute blood loss anemia: Much better so far after transfusion continue to watch for INR and CBC which will be done again today and tomorrow morning. _Severe coagulopathy: Looks like the biggest factor had affected her INR was probably starting Macrodantin for UTI sometimes a week early which is the only thing she was started on and that made her INR goes up to 8.0 and further more 9.8. Will keep watching if she goes on any antibiotics in the future should have her INR done within few days. _Leukocytosis: Most likely related to UTI patient be started on Rocephin. UTI: will do Rocephin 1 G daily and switch to Oral when D/C. _Acute kidney injury with BUN of 50 creatinine 1.09 with GFR 50 this is most likely from the severity of the anemia and volume loss correct anemia and volume loss hopefully the kidney function will improve. _Positive Hemoccult: Again not a clear patient is having any active bleed at this time or is just the effect of the coagulopathy. _Type 2 diabetes: Has been on metformin only continue Accu-Chek with sliding scales coverage. _A-fib: She had total of 4 ablation at [facility] and was seen Dr. Amin has been on metoprolol Cardizem and warfarin looking at her heart monitor she is on paced rhythm of 60 bpm with no A-fib but was informed by her electrophysio logist to stay on anticoagulation lifetime. _Post pacemaker: Apparently has been doing well with no complication. _Hyperlipidemia: On pravastatin 20 mg a day. _Hypertension: Remain on irbesartan 300 mg a day along with metoprolol succinate 25 mg a day, diltiazem CD. _Hypothyroidism: Continue levothyroxine 137 mcg daily. _Mild COPD: Continue albuterol/ipratropium along with montelukast and breztri inhaler. _Chronic edema and diastolic heart failure: Has been on furosemide 40 mg daily will hold medication for now. _GI prophylaxis: Continue patient on pantoprazole. CODE STATUS: Full code. Discussion patient had severe coagulopathy most likely from the interaction between antibiotics and her warfarin which created significantly high INR not a clear whether she is having any active GI bleed or not there is no sign of it at this point patient is still going to see general surgery with no need to do any endoscopy at this point specially if active nicely with the current management w ill continue GI prophylaxis watch patient for 24 more hours iron infusion to be done probably send patient home tomorrow with testing weekly for now until she is more stable and the anemia is better and we will try to switch her anticoagulation from warfarin to novel agent if possible. Objective - Vital Signs Vital signs: Vital Signs Temp 98.2 F 06/12/24 04:00 Pulse 73 10/09/23 04:00 Resp 14 10/09/23 04:00 BP 130/68 10/09/23 04:00 Pulse Ox 100 10/09/23 04:00 FiO2 Intake & Output 10/08/23 10/08/23 10/09/23 06:59 18:59 06:59 Intake Total 310 Balance 310 Weight 85.275 kg 85.275 kg Intake: Blood Product 310 Rc As-1 Unit 310 [id number] Other: Voiding Method Toilet - Labs CBC & Chem 7: 10/09/23 01:28 10/08/23 17:10 Labs: Abnormal Lab Results - Last 24 Hours (Table) 10/08/23 10/08/23 10/08/23 Range/Units 17:10 17:10 17:10 WBC 17.3 H (3.8-10.6) k/uL RBC 1.85 L (3.80-5.40) m/uL Hgb 5.7 L* (11.4-16.0) gm/dL Hct 17.1 L* (34.0-46.0) % RDW 15.6 H (11.5-15.5) % Neutrophils # (1.3-7.7) k/uL Neutrophils # (Manual) 15.00 H (1.3-7.7) k/uL Metamyelocytes # (Man) 0.17 H (0) k/uL Myelocytes # (Manual) 0.17 H (0) k/uL Nucleated RBCs 2 H (0-0) /100 WBC PT 97.8 H (10.0-12.5) sec INR 9.8 H* (<1.2) APTT 52.4 H (22.0-30.0) sec Sodium 134 L (137-145) mmol/L Carbon Dioxide 19 L (22-30) mmol/L BUN 50 H (7-17) mg/dL Creatinine 1.09 H (0.52-1.04) mg/dL Glucose 121 H (74-99) mg/dL Plasma Lactic Acid Jossue (0.7-2.0) mmol/L Total Protein 5.1 L (6.3-8.2) g/dL Albumin 3.3 L (3.5-5.0) g/dL Stool Occult Blood (Negative) Crossmatch 10/08/23 10/08/23 10/08/23 Range/Units 17:10 18:40 18:40 WBC (3.8-10.6) k/uL RBC (3.80-5.40) m/uL Hgb (11.4-16.0) gm/dL Hct (34.0-46.0) % RDW (11.5-15.5) % Neutrophils # (1.3-7.7) k/uL Neutrophils # (Manual) (1.3-7.7) k/uL Metamyelocytes # (Man) (0) k/uL Myelocytes # (Manual) (0) k/uL Nucleated RBCs (0-0) /100 WBC PT (10.0-12.5) sec INR (<1.2) APTT (22.0-30.0) sec Sodium (137-145) mmol/L Carbon Dioxide (22-30) mmol/L BUN (7-17) mg/dL Creatinine (0.52-1.04) mg/dL Glucose (74-99) mg/dL Plasma Lactic Acid Jossue 2.7 H* (0.7-2.0) mmol/L Total Protein (6.3-8.2) g/dL Albumin (3.5-5.0) g/dL Stool Occult Blood Positive H (Negative) Crossmatch See Detail 10/08/23 10/08/23 10/09/23 Range/Units 19:44 20:31 01:28 WBC 18.9 H 16.7 H (3.8-10.6) k/uL RBC 1.83 L 2.31 L (3.80-5.40) m/uL Hgb 5.5 L* 7.0 L D (11.4-16.0) gm/dL Hct 17.2 L* 21.4 L (34.0-46.0) % RDW 15.8 H (11.5-15.5) % Neutrophils # 12.8 H (1.3-7.7) k/uL Neutrophils # (Manual) 14.90 H (1.3-7.7) k/uL Metamyelocytes # (Man) 0.19 H (0) k/uL Myelocytes # (Manual) 0.19 H (0) k/uL Nucleated RBCs 1 H (0-0) /100 WBC PT (10.0-12.5) sec INR (<1.2) APTT (22.0-30.0) sec Sodium (137-145) mmol/L Carbon Dioxide (22-30) mmol/L BUN (7-17) mg/dL Creatinine (0.52-1.04) mg/dL Glucose (74-99) mg/dL Plasma Lactic Acid Jossue 2.6 H* (0.7-2.0) mmol/L Total Protein (6.3-8.2) g/dL Albumin (3.5-5.0) g/dL Stool Occult Blood (Negative) Crossmatch
[2023-10-09 08:40] LABS: Anisocytosis Slight; HCT 20.5 % (34.0-46.0); HGB 7.1 gm/dL (11.4-16.0); MCH 31.5 pg (25.0-35.0); MCHC 34.7 g/dL (31.0-37.0); Platelet Count 231 k/uL (150-450); RBC 2.25 m/uL (3.80-5.40); RDW 16.2 % (11.5-15.5); WBC 17.9 k/uL (3.8-10.6)
[2023-10-09] MEDS: MULTIVITAMINS, THERA 1 EACH TAB PO SCH (08:46)
[2023-10-09] MEDS: FLUTICASONE 50MCG/SPRAY NASAL 16GM EA NOSTRIL SCH (08:46)
[2023-10-09] MEDS: MAGNESIUM OXIDE 400 MG TAB PO SCH (08:46)
[2023-10-09] MEDS: FERROUS SULFATE 325 MG TAB PO SCH (08:46)
[2023-10-09] MEDS: CYANOCOBALAMIN 500 MCG TAB PO SCH (08:46)
[2023-10-09] MEDS: CHOLECALCIFEROL 125 MCG (5000 IU) TABLET PO SCH (08:46)
[2023-10-09] MEDS: busPIRone HCl 5 MG TAB PO SCH (08:46)
[2023-10-09] MEDS: PANTOPRAZOLE 40 MG/10 ML VIAL IVP SCH ×2 (08:47→20:59)
[2023-10-09] MEDS ORDERED: PANTOPRAZOLE 40 MG TABLET PO SCH (09:00)
[2023-10-09] MEDS ORDERED: NON FORMULARY DRUG (Omega-3 Fatty Acids/Fish Oil [Fish Oil 1,000 Mg Softgel] 1 EACH Capsul PO SCH (09:00)
[2023-10-09 09:02] LABS: INR 1.4 (<1.2); Prothrombin Time 14.4 sec (10.0-12.5)
[2023-10-09 09:03] LABS: ALT 20 U/L (4-34); AST 32 U/L (14-36); African American GFR (CKD) 67 (>60 ml/min/1.73 sqM); Albumin 3.3 g/dL (3.5-5.0); Alkaline Phosphatase 50 U/L (38-126); Anion Gap 6 mmol/L; Blood Urea Nitrogen 45 mg/dL (7-17); Calcium 8.5 mg/dL (8.4-10.2); Carbon Dioxide 20 mmol/L (22-30); Chloride 111 mmol/L (98-107); Glucose 139 mg/dL (74-99); Non-African American GFR(CKD) 58 (>60 ml/min/1.73 sqM); Potassium 4.4 mmol/L (3.5-5.1); Sodium 137 mmol/L (137-145); Total Bilirubin 0.8 mg/dL (0.2-1.3); Total Protein 5.4 g/dL (6.3-8.2)
[2023-10-09] MEDS: SODIUM FERRIC GLUCONAT-SUCROSE 125 MG in SODIUM CHLORIDE 0.9% 100 ML IVPB SCH (09:52)
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
[2023-10-09 12:36] LABS: Glucose,Whole Blood 118 mg/dL (70-110)
[2023-10-09] MEDS: INSULIN ASPART (NovoLOG) 100 UNIT/ML VIAL SQ SCH (12:43)
[2023-10-09 16:19] LABS: Glucose,Whole Blood 171 mg/dL (70-110)
[2023-10-09 18:03] LABS: Anisocytosis Slight; HCT 20.2 % (34.0-46.0); MCHC 33.6 g/dL (31.0-37.0); Mean Platelet Volume 7.8; Platelet Count 234 k/uL (150-450); Poikilocytosis Slight; RDW 17.1 % (11.5-15.5); WBC 17.7 k/uL (3.8-10.6)
[2023-10-09 18:05] LABS: HGB 6.8 gm/dL (11.4-16.0)
[2023-10-09 19:59] LABS: Glucose,Whole Blood 137 mg/dL (70-110)
[2023-10-09] MEDS: metFORMIN 500 MG TAB PO SCH (20:56)
[2023-10-09] MEDS: PRAVASTATIN SODIUM 20 MG TAB PO SCH (20:59)
[2023-10-09] MEDS: DILTIAZEM CD 120 MG CAP.ER.24H PO SCH (20:59)
[2023-10-09] MEDS: METOPROLOL SUCCINATE (ER) 25 MG TAB.ER.24H PO SCH (20:59)
[2023-10-09] MEDS: LOSARTAN 50 MG TAB PO SCH (21:00)
[2023-10-10 06:18] LABS: Glucose,Whole Blood 120 mg/dL (70-110)
[2023-10-10 09:51] LABS: Anisocytosis Slight; HCT 24.4 % (34.0-46.0); HGB 8.1 gm/dL (11.4-16.0); MCH 30.6 pg (25.0-35.0); MCV 92.6 fL (80.0-100.0); Mean Platelet Volume 8.1; Platelet Count 212 k/uL (150-450); RBC 2.64 m/uL (3.80-5.40); RDW 16.7 % (11.5-15.5); WBC 16.5 k/uL (3.8-10.6)
[2023-10-10 10:00] LABS: African American GFR (CKD) 75 (>60 ml/min/1.73 sqM); Anion Gap 4 mmol/L; Blood Urea Nitrogen 24 mg/dL (7-17); Calcium 8.4 mg/dL (8.4-10.2); Carbon Dioxide 22 mmol/L (22-30); Chloride 111 mmol/L (98-107); Glucose 97 mg/dL (74-99); Non-African American GFR(CKD) 65 (>60 ml/min/1.73 sqM); Potassium 4.5 mmol/L (3.5-5.1); Sodium 137 mmol/L (137-145)
[2023-10-10 10:03] LABS: INR 1.2 (<1.2); Prothrombin Time 12.6 sec (10.0-12.5)
[2023-10-10] MEDS ORDERED: PROPOFOL 10 MG/ML 20 ML VIAL IV ONE (10:08)
[2023-10-10] MEDS ORDERED: LIDOCAINE 2% (PF) 20 MG/ML 5 ML VIAL ONE (10:08)
[2023-10-10] MEDS: SODIUM CHLORIDE 0.9% 500 ML 500 ML IV ONE (10:10)
--- NOTE | 2023-10-10 10:38 | P.OP ---
Date of Procedure: 10/10/23 Preoperative Diagnosis: GI bleed. Coumadin toxicity Postoperative Diagnosis: mild antral gastritis Coumadin toxicity Procedure(s) Performed: EGD Anesthesia: MAC Surgeon: Cyrus Mondragon Pathology: other (antrum) Condition: stable Disposition: PACU Description of Procedure: the patient's placed on the endoscopy table in the lateral position. She received IV sedation. The gastro-/oropharynx passed in the esophagus and stomach. Scope was then placed through the pylorus. The first and second portion of the duodenum appeared normal. Scope was then brought back the antrum and this appeared mildly inflamed. A biopsies performed. The scope was then retroflexed and remainder the stomach appeared normal. There is no evidence of any GI bleed. The GE junction was at 47 is. Distal esophagusAppeared normal. The proximal esophagus appeared normal. Scope withdrawn for patient. There is no evidence of any active GI bleed. Resume the patient had anemia related to Coumadin toxicity.
[2023-10-10 11:26] LABS: Glucose,Whole Blood 104 mg/dL (70-110)
[2023-10-10 15:51] VITALS: BP 114/61; PULSE 60; RESP 16; TEMP 98.1
[2023-10-10 16:34] LABS: Glucose,Whole Blood 99 mg/dL (70-110)
--- NOTE | 2023-10-11 06:10 | P.PN ---
Subjective Progress Note Date: 10/10/23 HISTORY OF PRESENT ILLNESS: 78-year-old with active medical history of atrial fibrillation, obstructive sleep apnea, chronic history of lower back pain, hypertension, hyperlipidemia, h istory of iron deficiency anemia, chronic edema, and chronic depression who has multi surgery in the past patient apparently take warfarin for A-fib as an anticoagulation she has not been on any of the novel agent. Her PT/INR noticed in the office to be above 8 was instructed to watch it carefully and repeat quickly and if she is having any complaint to come to the emergency department. Apparently patient came to the emergency department in the afternoon today for her abnormal lab with significant shortness of breath and sever weakness of the lower extremity not been well explained. She was seen and evaluated surprisingly found to have INR of 9.8, hemoglobin of 5.5 hematocrit of 17.2 with white blood cell 18.9 normal platelet count. Electrolyte balance shows creatinine of 1.09 with bun of 50 Hemoccult was positive lactic acid was 1.2 blood sugar was 121 troponin was less than 0.012. Chest x-ray showed chronic changes without acute pulmonary process no pneumothorax or pleural effusion. EKG showed electronic atrial pacemaker with pulse rate running around 81 beats per minutes. With above complaint patient had severe acute anemia most likely from GI bleed with severe coagulopathy mostly iatrogenic as an interaction with the warfarin with diet and medication causing her INR to be that high. Patient will be watched carefully and blood transfusion be done will consult general surgery since there is no GI on-call for backup in case need to do endoscopy. In the meanwhile hopefully correcting her blood loss might help significantly and clear some of her symptoms. 10/09/2023: Patient is feeling much better, after her transfusion her hemoglobin is up to 7.0, no sign of active GI bleed at this point. Will start iron infusion still on GI prophylaxis at this point. Patient is scheduled to have GI endoscopy with Dr. Dustin allan in November from previous testing done over 2 years ago. She does not have any history of recurrent GI bleed or peptic ulcer disease. With her coagulopathy this probably the biggest factor be a problem. Long talk with patient today about if remain on warfarin we will try to do INR home monitor to tested weekly from now and otherwise we will see if we are able to approve patient for the [facility] agent to switch her to either Eliquis or Xarelto. Patient will remain in the hospital for 24 more hours and will try to send her home tomorrow but she will have iron infusion today and tomorrow. 09/09/2023: Patient is feeling very well today, hemoglobin steady at 8.1 with white blood cell still mild elevated 16.5, normal bun and creatinine. She is n.p.o. will be going for an EGD this morning to check for any peptic ulcer disease or any gastritis. After she has done if stable and feeling well and will be discharged home today will initiate [facility] agent with Eliquis 5 mg twice a day started on Saturday on. Patient will be continued on proton pump inhibitor, CBC will be done weekly for the next 4 weeks. REVIEW OF SYSTEMS: CONSTITUTIONAL: Well-developed very pale no acute respiratory distress. EYES: No icterus sclerae, no conjunctivitis. EARS, NOSE, MOUTH, THROAT, and FACE: No sore throat, lymphadenopathy, carotid b ruits or deformity. RESPIRATORY: No SOB cough or wheezes. CARDIOVASCULAR: No CP, Palpitation, PND, Orthopnea, or angina. GASTROINTESTINAL: No Abd pain, Nausea or vomiting, no Diarrhea or constipation, No GI Bleed, no distention or masses. GENITOURINARY: Negative for Hematuria or UTI, no kidney stones. INTEGUMENT/BREAST: Negative for any muscular injury with mild osteoarthritis.. HEMATOLOGIC/LYMPHATIC: Negative for bleed or purpura. MUSCULOSKELTAL: Negative for Myalgia or arthralgia. NEURLOGICAL: No LOC, Sz or syncope, blurred vision dizziness or abnormality.. BEHAVIORAL/PSYCH: Negative. ENDOCRINE: Negative. PHYSICAL EXAMINATION: General Appearance: Alert, cooperative, no distress, appears stated age. Neck HEENT: Supple, no lymphadenopathy, no thyroid enlargement, no carotid bruits. Lungs: Clear to auscultation without crackles or wheezes no rhonchi, no deformity. Chest Wall: Chest wall normal expansion with deep inspiration no tenderness and no deformity was found on exam, no costochondral pain or discomfort. Heart: Regular rate and rhythm, S1, S2 normal, no murmur, rub or gallop. Back: Symmetric, no curvature, ROM normal, no CVA tenderness. Abdomen: Soft, non-tender, bowel sounds active all four quadrants, no masses, no organomegaly. Extremities: Extremities normal, atraumatic, no cyanosis or edema. Pulses: 2+ and symmetric. Skin: Skin color, texture, tugor normal, no rashes or lesions. Neurologic: Alert oriented x3 cranial nerves II through XII intact, no motor deficit, no abnormal balance or gait. ASSESSMENT AND PLAN: _Acute blood loss anemia: Stable and hemoglobin remained above 8, iron infusion be done again today patient will be continued to be tested once a week for the next 4 weeks. _Severe coagulopathy: Much better after giving her vitamin K reversal and stable. Patient is not going back on anticoagulation with warfarin but she will be on one of the novel agent. _Leukocytosis: Secondary to UTI switch patient from Rocephin to cefuroxime. UTI: Had Rocephin in the hospital and going home will be on Ceftin to 50 mg twice a day for 1 week. _Acute kidney injury: On her admission she is back to normal with hydration and resuscitation with blood transfusion, kidney function is back to normal again we will retest BUN/creatinine in 1 week. _Positive Hemoccult: Again not a clear patient is having any active bleed at this time or is just the effect of the coagulopathy. Patient be going for EGD. _Type 2 diabetes: Has been on metformin only continue Accu-Chek with sliding scales coverage. _A-fib: She had total of 4 ablation at [facility] and was seen Dr. Amin has been on metoprolol Cardizem and warfarin looking at her heart monitor she is on paced rhythm of 60 bpm with no A-fib but was informed by her check airman to stay on anticoagulation lifetime. But from here on her anticoagulation be switched to one of the novel agent with Eliquis 5 mg twice a day started on Saturday. _Post pacemaker: Apparently has been doing well with no complication. _Hyperlipidemia: On pravastatin 20 mg a day. _Hypertension: Remain on irbesartan 300 mg a day along with metoprolol succinate 25 mg a day, diltiazem CD. _Hypothyroidism: Continue levothyroxine 137 mcg daily. _Mild COPD: Continue albuterol/ipratropium along with montelukast and breztri inhaler. _Chronic edema and diastolic heart failure: Has been on furosemide 40 mg daily will hold medication for now. CODE STATUS: Full code. Discussion patient had severe coagulopathy most likely from the interaction between antibiotics and her warfarin which created significantly high INR not a clear whether she is having any active GI bleed or not there is no sign of it at this point patient is still going for EGD to exclude any possibility of bleeding ulcer or severe gastritis if her test is negative patient be discharged home today and to test her CBC once a week for the next 4 weeks will be seen back in the office within 1 week. Objective - Vital Signs Vital signs: Vital Signs Temp 98.1 F 10/10/23 04:00 Pulse 60 10/10/23 04:00 Resp 14 10/10/23 04:00 BP 113/56 10/10/23 04:00 Pulse Ox 99 10/10/23 04:00 FiO2 Intake & Output 10/09/23 10/09/23 10/10/23 06:59 18:59 06:59 Intake Total 310 1050 310 Balance 310 1050 310 Weight 85.275 kg Intake: Oral 1050 Blood Product 310 310 Rc As-1 Unit 310 [id number] Rc As-1 Unit 310 [id number] Other: Voiding Method Toilet Toilet # Voids 3 3 2 # Bowel Movements 0 1 - Labs CBC & Chem 7: 10/10/23 09:14 10/10/23 09:14 Labs: Abnormal Lab Results - Last 24 Hours (Table) 10/08/23 10/09/23 10/09/23 Range/Units 18:40 05:45 08:13 WBC 17.9 H (3.8-10.6) k/uL RBC 2.25 L (3.80-5.40) m/uL Hgb 7.1 L (11.4-16.0) gm/dL Hct 20.5 L (34.0-46.0) % RDW 16.2 H (11.5-15.5) % PT (10.0-12.5) sec INR (<1.2) Chloride (98-107) mmol/L Carbon Dioxide (22-30) mmol/L BUN (7-17) mg/dL Glucose (74-99) mg/dL POC Glucose (mg/dL) (70-110) mg/dL Total Protein (6.3-8.2) g/dL Albumin (3.5-5.0) g/dL Urine Appearance Cloudy H (Clear) Ur Leukocyte Esterase Large H (Negative) Urine RBC 6 H (0-5) /hpf Urine WBC 182 H (0-5) /hpf Urine WBC Clumps Occasional H (None) /hpf Urine Bacteria Moderate H (None) /hpf Urine Mucus Rare H (None) /hpf Crossmatch See Detail 10/09/23 10/09/23 10/09/23 Range/Units 08:13 08:13 12:35 WBC (3.8-10.6) k/uL RBC (3.80-5.40) m/uL Hgb (11.4-16.0) gm/dL Hct (34.0-46.0) % RDW (11.5-15.5) % PT 14.4 H (10.0-12.5) sec INR 1.4 H (<1.2) Chloride 111 H (98-107) mmol/L Carbon Dioxide 20 L (22-30) mmol/L BUN 45 H (7-17) mg/dL Glucose 139 H (74-99) mg/dL POC Glucose (mg/dL) 118 H (70-110) mg/dL Total Protein 5.4 L (6.3-8.2) g/dL Albumin 3.3 L (3.5-5.0) g/dL Urine Appearance (Clear) Ur Leukocyte Esterase (Negative) Urine RBC (0-5) /hpf Urine WBC (0-5) /hpf Urine WBC Clumps (None) /hpf Urine Bacteria (None) /hpf Urine Mucus (None) /hpf Crossmatch 10/09/23 10/09/23 10/09/23 Range/Units 16:18 17:45 19:57 WBC 17.7 H (3.8-10.6) k/uL RBC 2.20 L (3.80-5.40) m/uL Hgb 6.8 L* (11.4-16.0) gm/dL Hct 20.2 L (34.0-46.0) % RDW 17.1 H (11.5-15.5) % PT (10.0-12.5) sec INR (<1.2) Chloride (98-107) mmol/L Carbon Dioxide (22-30) mmol/L BUN (7-17) mg/dL Glucose (74-99) mg/dL POC Glucose (mg/dL) 171 H 137 H (70-110) mg/dL Total Protein (6.3-8.2) g/dL Albumin (3.5-5.0) g/dL Urine Appearance (Clear) Ur Leukocyte Esterase (Negative) Urine RBC (0-5) /hpf Urine WBC (0-5) /hpf Urine WBC Clumps (None) /hpf Urine Bacteria (None) /hpf Urine Mucus (None) /hpf Crossmatch 10/10/23 Range/Units 06:16 WBC (3.8-10.6) k/uL RBC (3.80-5.40) m/uL Hgb (11.4-16.0) gm/dL Hct (34.0-46.0) % RDW (11.5-15.5) % PT (10.0-12.5) sec INR (<1.2) Chloride (98-107) mmol/L Carbon Dioxide (22-30) mmol/L BUN (7-17) mg/dL Glucose (74-99) mg/dL POC Glucose (mg/dL) 120 H (70-110) mg/dL Total Protein (6.3-8.2) g/dL Albumin (3.5-5.0) g/dL Urine Appearance (Clear) Ur Leukocyte Esterase (Negative) Urine RBC (0-5) /hpf Urine WBC (0-5) /hpf Urine WBC Clumps (None) /hpf Urine Bacteria (None) /hpf Urine Mucus (None) /hpf Crossmatch
--- NOTE | 2023-10-11 06:10 | P.DS ---
Providers Date of admission: 10/08/23 19:27 Attending physician: Александр Martinez Consults: 10/08/23 19:25 Consult Physician Urgent Consulting Provider: Cyrus Mondragon Consult Reason/Comments: GI bleed Do you want consulting provider notified?: Yes Primary care physician: [facility] Course: HISTORY OF PRESENT ILLNESS: 78-year-old with active medical history of atrial fibrillation, obstructive sleep apnea, chronic history of lower back pain, hypertension, hyperlipidemia, history of iron deficiency anemia, chronic edema, and chronic depression who has multi surgery in the past patient apparently take warfarin for A-fib as an anticoagulation she has not been on any of the novel agent. Her PT/INR noticed in the office to be above 8 was instructed to watch it carefully and repeat quickly and if she is having any complaint to come to the emergency department. Apparently patient came to the emergency department in the afternoon today for her abnormal lab with significant shortness of breath and sever weakness of the lower extremity not been well explained. She was seen and evaluated surprisingly found to have INR of 9.8, hemoglobin of 5.5 hematocrit of 17.2 with white blood cell 18.9 normal platelet count. Electrolyte balance shows creatinine of 1.09 with bun of 50 Hemoccult was positive lactic acid was 1.2 blood sugar was 121 troponin was less than 0.012. Chest x-ray showed chronic changes without acute pulmonary process no pneumothorax or pleural effusion. EKG showed electronic atrial pacemaker with pulse rate running around 81 beats per minutes. With above complaint patient had severe acute anemia most likely from GI bleed with severe coagulopathy mostly iatrogenic as an interaction with the warfarin with diet and medication causing her INR to be that high. Patient will be watched carefully and blood transfusion be done will consult general surgery since there is no GI on-call for backup in case need to do endoscopy. In the meanwhile hopefully correcting her blood loss might help significantly and clear some of her symptoms. 10/09/2023: Patient is feeling much better, after her transfusion her hemoglobin is up to 7.0, no sign of active GI bleed at this point. Will start iron infusion still on GI prophylaxis at this point. Patient is scheduled to have GI endoscopy with Dr. Dustin allan in November from previous testing done over 2 years ago. She does not have any history of recurrent GI bleed or peptic ulcer disease. With her coagulopathy this probably the biggest factor be a problem. Long talk with patient today about if remain on warfarin we will try to do INR home monitor to tested weekly from now and otherwise we will see if we are able to approve patient for the [facility] agent to switch her to either Eliquis or Xarelto. Patient will remain in the hospital for 24 more hours and will try to send her home tomorrow but she will have iron infusion today and tomorrow. 09/09/2023: Patient is feeling very well today, hemoglobin steady at 8.1 with white blood cell still mild elevated 16.5, normal bun and creatinine. She is n.p.o. will be going for an EGD this morning to check for any peptic ulcer disease or any gastritis. After she has done if stable and feeling well and will be discharged home today will initiate [facility] agent with Eliquis 5 mg twice a day started on Saturday on. Patient will be continued on proton pump inhibitor, CBC will be done weekly for the next 4 weeks. REVIEW OF SYSTEMS: CONSTITUTIONAL: Well-developed very pale no acute respiratory distress. EYES: No icterus sclerae, no conjunctivitis. EARS, NOSE, MOUTH, THROAT, and FACE: No sore throat, lymphadenopathy, carotid bruits or deformity. RESPIRATORY: No SOB cough or wheezes. CARDIOVASCULAR: No CP, Palpitation, PND, Orthopnea, or angina. GASTROINTESTINAL: No Abd pain, Nausea or vomiting, no Diarrhea or constipation, No GI Bleed, no distention or masses. GENITOURINARY: Negative for Hematuria or UTI, no kidney stones. INTEGUMENT/BREAST: Negative for any muscular injury with mild osteoarthritis.. HEMATOLOGIC/LYMPHATIC: Negative for bleed or purpura. MUSCULOSKELTAL: Negative for Myalgia or arthralgia. NEURLOGICAL: No LOC, Sz or syncope, blurred vision dizziness or abnormality.. BEHAVIORAL/PSYCH: Negative. ENDOCRINE: Negative. PHYSICAL EXAMINATION: General Appearance: Alert, cooperative, no distress, appears stated age. Neck HEENT: Supple, no lymphadenopathy, no thyroid enlargement, no carotid bruits. Lungs: Clear to auscultation without crackles or wheezes no rhonchi, no deformity. Chest Wall: Chest wall normal expansion with deep inspiration no tenderness and no deformity was found on exam, no costochondral pain or discomfort. Heart: Regular rate and rhythm, S1, S2 normal, no murmur, rub or gallop. Back: Symmetric, no curvature, ROM normal, no CVA tenderness. Abdomen: Soft, non-tender, bowel sounds active all four quadrants, no masses, no organomegaly. Extremities: Extremities normal, atraumatic, no cyanosis or edema. Pulses: 2+ and symmetric. Skin: Skin color, texture, tugor normal, no rashes or lesions. Neurologic: Alert oriented x3 cranial nerves II through XII intact, no motor deficit, no abnormal balance or gait. ASSESSMENT AND PLAN: _Acute blood loss anemia: Stable and hemoglobin remained above 8, iron infusion be done again today patient will be continued to be tested once a week for the next 4 weeks. _Severe coagulopathy: Much better after giving her vitamin K reversal and stable. Patient is not going back on anticoagulation with warfarin but she will be on one of the novel agent. _Leukocytosis: Secondary to UTI switch patient from Rocephin to cefuroxime. UTI: Had Rocephin in the hospital and going home will be on Ceftin to 50 mg twice a day for 1 week. _Acute kidney injury: On her admission she is back to normal with hydration and resuscitation with blood transfusion, kidney function is back to normal again we will retest BUN/creatinine in 1 week. _Positive Hemoccult: Again not a clear patient is having any active bleed at this time or is just the effect of the coagulopathy. Patient be going for EGD. _Type 2 diabetes: Has been on metformin only continue Accu-Chek with sliding scales coverage. _A-fib: She had total of 4 ablation at [facility] and was seen Dr. Amin has been on metoprolol Cardizem and warfarin looking at her heart monitor she is on paced rhythm of 60 bpm with no A-fib but was informed by her dot etcher to stay on anticoagulation lifetime. But from here on her anticoagulation be switched to one of the novel agent with Eliquis 5 mg twice a day started on Saturday. _Post pacemaker: Apparently has been doing well with no complication. _Hyperlipidemia: On pravastatin 20 mg a day. _Hypertension: Remain on irbesartan 300 mg a day along with metoprolol succinate 25 mg a day, diltiazem CD. _Hypothyroidism: Continue levothyroxine 137 mcg daily. _Mild COPD: Continue albuterol/ipratropium along with montelukast and breztri inhaler. _Chronic edema and diastolic heart failure: Has been on furosemide 40 mg daily will hold medication for now. CODE STATUS: Full code. Discussion patient had severe coagulopathy most likely from the interaction between antibiotics and her warfarin which created significantly high INR not a clear whether she is having any active GI bleed or not there is no sign of it at this point patient is still going for EGD to exclude any possibility of bleeding ulcer or severe gastritis if her test is negative patient be discharged home today and to test her CBC once a week for the next 4 weeks will be seen back in the office within 1 week. Hospital course: Patient was hospitalized on 10/08/2023 with severe anemia and severe coagulopathy with INR of 9.8 hemoglobin of 5.5 with hematocrit 17.0 and white blood cell of 18.9 she was complaining of severe tiredness fatigue and presyncope like symptoms with significant shortness of breath and weakness. Her Hemoccult was positive but she does not seem in any GI bleed at the time. Apparently patient was diagnosed with UTI and was given Macrodantin the week before that made her INR much higher around 8.0 on early Saturday. Patient was called informed about her INR to have it tested was having severe symptoms at the time was instructed to go to the emergency department where was seen and evaluated. Patient was hospitalized with above problem she was giving 2 unit of blood transfusion to correct her hemoglobin above 7 and initially we decided to consult general surgery with gastroenterology not on-call this week. Patient has an appointment for endoscopy in November for colonoscopy from her last scope 2 years ago. After vitamin K was giving her INR dropped down significantly to be normalized. With her transfusion her hemoglobin become much better but we decided to do iron infusion for [address] Mondragon was seen patient in consultation and decided to do an EGD to make sure no endoscopy finding of severe gastritis or peptic ulcer disease or more obvious reason for bleed. Done family today on 10/10/2023 with finding not significant for any evidence of active GI bleed that mildly inflamed antrum. Patient will be continue on proton pump inhibitor from now on she will be discharged home and see him back in the office within few days and her CBC will be done weekly for the next 4 weeks the patient will be switched to one of the novel agent which is Eliquis 5 mg twice a day sample and prescription be provided and if we are having problem with coverage or affordability patient will be placed back on warfarin and gradually will be tested till her INR is therapeutic and make sure is not getting go high and talk to patient about if that happen patient should go on to do INR testing once a week at home and the office will arrange it for her. Time spent on discharging patient was over 32 minutes. Plan - Discharge Summary New Discharge Prescriptions: New Cefuroxime [Ceftin] 250 mg PO BID 5 Days #10 tab Apixaban [Eliquis] 5 mg PO BID #60 tab Continue Levothyroxine Sodium [Synthroid] 137 mcg PO DAILY Aspirin EC [Ecotrin Low Dose] 81 mg PO DAILY [place]-3 Fatty Acids/Fish Oil [Fish Oil 1,000 mg Softgel] 1 cap PO BID Multivit with Calcium,Iron,Min [Women's Daily Multivitamin] 1 tab PO DAILY busPIRone HCL 5 mg PO BID Ferrous Sulfate [Iron (65 MG Elemental)] 325 mg PO DAILY Furosemide [Lasix] 40 mg PO DAILY Loratadine [Claritin] 10 mg PO DAILY PRN PRN Reason: Allergy Symptoms Montelukast Sodium [Singulair] 10 mg PO HS PRN PRN Reason: Allergy Symptoms Potassium Chloride [Klor-Con 20] 20 meq PO DAILY Vitamin C/Biotin [Hair, Skin and Nails Chew] 1 tab PO DAILY Carboxymethylcellulose Sodium [Refresh Tears] 1 drop BOTH EYES QID PRN PRN Reason: Dry Eye(S) Diltiazem Cd [Cardizem CD] 120 mg PO HS@2100 Metoprolol Succinate (ER) [Toprol XL] 25 mg PO HS Irbesartan 150 mg PO HS@2100 Pantoprazole [Protonix] 40 mg PO DAILY Cholecalciferol [Vitamin D3 (125 Mcg = 5000 Iu)] 125 mcg PO DAILY Amoxicillin 2,000 mg PO DIRECTED PRN PRN Reason: dental appointment Budesonide/Glycopyr/Formoterol [Breztri Aerosphere Inhaler] 2 puff INHALATION DIRECTED PRN PRN Reason: Shortness Of Breath Magnesium Oxide [Magnesium] 500 mg PO DAILY Fluticasone Nasal [place] [Flonase Nasal [place]] 1 spr EA NOSTRIL BID metFORMIN HCL ER [Glucophage XR] 500 mg PO HS Cyanocobalamin [Vitamin B-12] 500 mcg PO MOWEFR Pravastatin Sodium [Pravachol] 80 mg PO DAILY Discontinued Warfarin [Coumadin] 5 mg PO DIRECTED Discharge Medication List Aspirin EC [Ecotrin Low Dose] 81 mg PO DAILY 02/17/15 [History] Levothyroxine Sodium [Synthroid] 137 mcg PO DAILY 02/17/15 [History] Multivit with Calcium,Iron,Min [Women's Daily Multivitamin] 1 tab PO DAILY 02/17/15 [History] [place]-3 Fatty Acids/Fish Oil [Fish Oil 1,000 mg Softgel] 1 cap PO BID 02/17/15 [History] Ferrous Sulfate [Iron (65 MG Elemental)] 325 mg PO DAILY 09/06/16 [History] Furosemide [Lasix] 40 mg PO DAILY 09/06/16 [History] Loratadine [Claritin] 10 mg PO DAILY PRN 09/06/16 [History] Montelukast Sodium [Singulair] 10 mg PO HS PRN 09/06/16 [History] Potassium Chloride [Klor-Con 20] 20 meq PO DAILY 09/06/16 [History] Vitamin C/Biotin [Hair, Skin and Nails Chew] 1 tab PO DAILY 09/06/16 [History] busPIRone HCL 5 mg PO BID 09/06/16 [History] Amoxicillin 2,000 mg PO DIRECTED PRN 10/08/23 [History] Budesonide/Glycopyr/Formoterol [Breztri Aerosphere Inhaler] 2 puff INHALATION DIRECTED PRN 10/08/23 [History] Carboxymethylcellulose Sodium [Refresh Tears] 1 drop BOTH EYES QID PRN 10/08/23 [History] Cholecalciferol [Vitamin D3 (125 Mcg = 5000 Iu)] 125 mcg PO DAILY 10/08/23 [History] Cyanocobalamin [Vitamin B-12] 500 mcg PO MOWEFR 10/08/23 [History] Diltiazem Cd [Cardizem CD] 120 mg PO HS@209910/08/23 [History] Fluticasone Nasal [place] [Flonase Nasal [place]] 1 spr EA NOSTRIL BID 10/08/23 [History] Irbesartan 150 mg PO HS@209910/08/23 [History] Magnesium Oxide [Magnesium] 500 mg PO DAILY 10/08/23 [History] Metoprolol Succinate (ER) [Toprol XL] 25 mg PO HS 10/08/23 [History] Pantoprazole [Protonix] 40 mg PO DAILY 10/08/23 [History] metFORMIN HCL ER [Glucophage XR] 500 mg PO HS 10/08/23 [History] Pravastatin Sodium [Pravachol] 80 mg PO DAILY 10/09/23 [History] Apixaban [Eliquis] 5 mg PO BID #60 tab 10/10/23 [Rx] Cefuroxime [Ceftin] 250 mg PO BID 5 Days #10 tab 10/10/23 [Rx] Follow up Appointment(s)/Referral(s): Jumana Griffith MD [Primary Care Provider] - 1-2 days Ambulatory/Diagnostic Orders: Complete Blood Count w/diff [LAB.AMB] Time Frame: 1 Week, Location: None Selected Patient Instructions/Handouts: Anemia (DC) Discharge Disposition: HOME SELF-CARE
== END 2023-10-10 19:20 | disposition home or self-care (01) | DRG 813 ==
LOC: EC 16:17 → 3SCARD 19:27
PROVIDERS: ADMIT Internal Medicine Geriatric Medicine; ATTEND Internal Medicine Geriatric Medicine
PROC: 30233N1 Transfusion of Nonautologous Red Blood Cells into Peripheral Vein, Percutaneous Approach (ICD-10-PCS; 2023-10-08)
PROC: 0DB78ZX Excision of Stomach, Pylorus, Via Natural or Artificial Opening Endoscopic, Diagnostic (ICD-10-PCS; principal; 2023-10-10 10:10)
DX: D68.32 Hemorrhagic disorder due to extrinsic circulating anticoagulants (principal); D62 Acute posthemorrhagic anemia; I50.32 Chronic diastolic (congestive) heart failure; N39.0 Urinary tract infection, site not specified; I11.0 Hypertensive heart disease with heart failure; E11.9 Type 2 diabetes mellitus without complications; E03.9 Hypothyroidism, unspecified; D50.9 Iron deficiency anemia, unspecified; J44.9 Chronic obstructive pulmonary disease, unspecified; F32.A Depression, unspecified; I48.91 Unspecified atrial fibrillation; T45.515A Adverse effect of anticoagulants, initial encounter; T37.8X5A Adverse effect of other specified systemic anti-infectives and antiparasitics, initial encounter; E78.5 Hyperlipidemia, unspecified; K29.70 Gastritis, unspecified, without bleeding; Z28.310 Unvaccinated for COVID-19; G47.33 Obstructive sleep apnea (adult) (pediatric); M54.2 Cervicalgia; M54.50 Low back pain, unspecified; F41.9 Anxiety disorder, unspecified; Z79.82 Long term (current) use of aspirin; Z79.51 Long term (current) use of inhaled steroids; Z79.890 Hormone replacement therapy; Z79.01 Long term (current) use of anticoagulants; Z79.899 Other long term (current) drug therapy; Z79.84 Long term (current) use of oral hypoglycemic drugs; Z95.0 Presence of cardiac pacemaker
CPT/HCPCS: 36415; 36430; 43239; 71046; 80048; 80053; 81001; 82272; 83605; 83735; 84484; 85025; 85027; 85610; 85730; 86850; 86900; 86901; 86920; 87077; 87086; 87186; 88305; 88342; 93005; 96365; 99285